=== PATIENT | male | born 1975 | race Caucasian/White ===

== ENCOUNTER 2019-11-13 09:40 | Emergency (ER) | payer OTHER ==
[~2019-11-13] VITALS: Ht 190.5 cm; Wt 81.7 kg
[2019-11-13] MEDS ORDERED: PENICILLIN V P500 MG PO (10:02)
== END 2019-11-13 10:11 | disposition home or self-care (01) ==
LOC: ED 09:40
DX: K04.7 Periapical abscess without sinus (principal)
CPT/HCPCS: 99282

== ENCOUNTER → 2019-12-23 | Emergency (ER) | payer OTHER ==
[~2019-12-23] VITALS: Ht 190.5 cm; Wt 81.6 kg
[~2019-12-23] MED LIST: PENICILLIN V P500 MG PO
--- OUTSIDE RECORDS SUMMARY | ~2019-12-23 | XMS | Clinical Summary ---
Demographics + + + | Address | [address] | | | [place] [address] | + + + | Home Phone | | + + + | Preferred Language | Unknown | + + + | Marital Status | Unknown | + + + | Samaritan Affiliation | Unknown | + + + | Race | Unknown | + + + | Ethnic Group | Unknown | + + + Author + + + | Author | [facility] | | | and [place] | + + + | Organization | [facility] | | | and [place] | + + + | Address | Unknown | + + + | Phone | Unavailable | + + + Care Team Providers + +------+ + | Care Laser Cutter Name | Role | Phone | + +------+ + | Kb Acosta PCP | | + +------+ + Allergies Not on File Medications Not on file Active Problems Not on file Social History + +-------+ +--------+------+ | Tobacco Use | Types | Packs/Day | Years | Date | | | | | Used | | + +-------+ +--------+------+ | Never Assessed | | | | | + +-------+ +--------+------+ + + + | Sex Assigned at | Date Recorded | | | | + + + | Not on file | | + + + Last Filed Vital Signs Not on file Plan of Treatment +--------+---------+ + + + | Date | Type | Specialty | Care Team | Description | +--------+---------+ + + + | 02/12/ | Office | Neurology | Barrett Maryjane | | | 2019 | Visit | | MD [facility] | | | | | | [place] | | | | | | [place] [address] | | | | | | [phone] | | | | | | | | +--------+---------+ + + + + + +-------+ + | Health Maintenance | Due Date | Last | Comments | | | | Done | | + + +-------+ + | Hepatitis C | | | | | Screening | 5 | | | + + +-------+ + | Vaccine: | | | | | Dtap/Tdap/Td (1 - | 4 | | | | Tdap) | | | | + + +-------+ + | Vaccine: Influenza | | | | | (#1) | 0 | | | + + +-------+ + Results Not on filefrom Last 3 Months Insurance + +--------+ +--------+ +---------+--------+ | Payer | Benefi | Subscriber | Effect | Phone | Address | Type | | | t Plan | ID | gen | | | | | | / | | Dates | | | | | | Group | | | | | | + +--------+ +--------+ +---------+--------+ | [employer] | [employer] | [id number] | 12/10/19 | [phone] | | Medica | | MEDICAID HMO | HEALTH | | 20-Pre | 1 | | id | | | MDCD | | sent | | | | | | [place] | | | | | | + +--------+ +--------+ +---------+--------+ + +--------+ +--------+ + + | Guarantor Name | Accoun | Relation to | Date | Phone | Billing Address | | | t Type | Patient | of | | | | | | | | | | + +--------+ +--------+ + + | Erwin Francis | Person | Self [birth year] | [address] | | | al/Fam | | 1976 | [phone] | [place] [address] | | | marino | | | 4 (Home) | | + +--------+ +--------+ + + Advance Directives + + + + + | Type | Date Recorded | Patient | Explanation | | | | Pockets And Pieces Necktie Operator | | + + + + + | Power of | | | | | Tripper | | | | + + + + + | Advance | | | | | Directive | | | | + + + + +"
== END ==
LOC: ED 09:12
DX: M25.561 Pain in right knee (principal); M25.562 Pain in left knee; G35 Multiple sclerosis; Z87.891 Personal history of nicotine dependence
CPT/HCPCS: 99283

== ENCOUNTER 2022-12-07 15:44 | Emergency (ER) | payer OTHER ==
[~2022-12-07] VITALS: Ht 190.5 cm; Wt 83.9 kg
--- OUTSIDE RECORDS SUMMARY | ~2022-12-07 | XMS | Continuity of Care Document ---
Demographics + + + | Address | [address] | | | [place] [address] | + + + | Preferred Language | Unknown | + + + | Marital Status | Never | + + + | Roman Catholic Affiliation | Unknown | + + + | Race | White | + + + | Ethnic Group | Not or | + + + Author + + + | Author | [place] | + + + | Organization | [place] | + + + | Address | [address] [facility] | | | [place] [address] | + + + | Phone | | + + + Care Team Providers + + + + | Care Plater Supervisor Name | Role | Phone | + [...] + | 2022-10-03 00:00 | NAPROXEN | [facility] | + + + + | 2022-10-03 00:00 | NAPROXEN | [facility] | + + + + | 2022-10-03 00:00 | METHYLPREDNISOLONE | [facility] | + + + + | 2022-10-03 00:00 | LEVOTHYROXINE SODIUM | [facility] | + + + + Problems + + + + | date | description | facility | + + + + | 2019-12-23 00:00 | Multiple sclerosis | [facility] | + + + + | 2019-12-23 00:00 | Pain in both knees | [facility] | + + + + | 2022-06-16 [...] 2022-10-03 00:00 | Inguinal strain | [facility] | + + + + | 2022-10-03 [...] | [facility] | + + + + Procedures No information. Results/Labs No information. Social History No information. Vital Signs + [...]
[~2022-12-07 15:44] MED LIST changes: +LEVOTHYROXINE75 MCG PO; +MEDROL4 MG PO; +NAPROSYN500 MG PO; +NAPROXEN500 MG PO
[2022-12-07 15:52] LABS: BASOPHILS 0.7 % (0-2); EOSINOPHILS 1.8 % (0-6); HEMATOCRIT 43.5 % (35.0-50.0); HEMOGLOBIN 14.8 g/dL (12.0-18.0); MCH 32.4 (27-36); MCV 95.3 fl (81-99); MONOCYTES 8.1 % (0-12); NEUTROPHILS 68.4 % (39-80); PLATELET COUNT 206 K/uL (140-440); RBC 4.56 M/ul (4.3-5.7); RDW 13.6 (10.5-15.0)
[2022-12-07 16:08] LABS: ALBUMIN 4.4 g/dL (3.4-5.0); ALBUMIN/GLOBULIN RATIO 1.19 (1.1-2.4); ANION GAP 14.2 (7-21); BILIRUBIN, TOTAL 0.5 ng/dL (0.2-1.0); BUN/CREATININE RATIO 11.32 (6.0-28.6); CALCIUM 9.6 mg/dL (8.5-10.1); CREATININE, SERUM 1.06 mg/dL (0.70-1.30); POTASSIUM 4.2 mmol/L (3.5-5.1); PROTEIN, TOTAL 8.1 g/dL (6.4-8.2)
[2022-12-07] MEDS ORDERED: TRAMADOL HCL E100 MG (16:43)
[2022-12-07 18:46] VITALS: BP 133/75
== END 2022-12-07 18:46 | disposition left against medical advice (07) ==
LOC: ED 15:44
PROVIDERS: Emergency Medicine
DX: I63.9 Cerebral infarction, unspecified (principal); G35 Multiple sclerosis; Z20.822 Contact with and (suspected) exposure to COVID-19; E03.9 Hypothyroidism, unspecified; M19.90 Unspecified osteoarthritis, unspecified site; Z88.8 Allergy status to other drugs, medicaments and biological substances; Z88.6 Allergy status to analgesic agent; Z79.899 Other long term (current) drug therapy
CPT/HCPCS: 36415; 70450; 70496; 70498; 80053; 85025; 99284-25; C9803; J3101; Q9967; U0002

== ENCOUNTER 2022-12-08 09:26 | Emergency (ER) | payer OTHER ==
[~2022-12-08] VITALS: Ht 190.5 cm; Wt 80.9 kg
--- OUTSIDE RECORDS SUMMARY | ~2022-12-08 | XMS | Continuity of Care Document ---
Demographics + + + | Address | [address] | | | [place] [address] | + + + | Preferred Language | Unknown | + + + | Marital Status | Never | + + + | Adventist Affiliation | Unknown | + + + | Race | White | + + + | Ethnic Group | Not or | + + + Author + + + | Author | [facility] | + + + | Organization | [facility] | + + + | Address | [address] [facility] | | | [place] [address] | + + + | Phone | | + + + Care Team Providers + + + + | Care House Mover Name | Role | Phone | + + + + Unavailable | Unavailable | + + + + Unavailable | Unavailable | + + + + Allergies and Intolerances + + + + + + | date | description | facility | reaction | severity | + + + + + + | (no date) | Aspirin [facility] (no reaction[facility] | (no severity) [facility] | | | + + + + + + | (no date) | Acetaminophen | [facility] | (no reaction) | (no severity) | | [facility] | | | + + + + + + | (no date) | Acetaminophen | [facility] | (no reaction) | (no severity) | | [facility] | | | + + + + + + | (no date) | Ibuprofen | [facility] | (no reaction) | (no severity) | | [facility] | | | + + + + + + | (no date) | Aspirin | [facility] | (no reaction) | (no severity) | | [facility] | | | + + + + + + | (no date) | Acetaminophen | [facility] | (no reaction) | (no severity) | | [facility] | | | + + + + + + | (no date) | Vomiting | [facility] | (no reaction) | (no severity) | | [facility] | | | + + + + + + | (no date) | Ibuprofen | [facility] | (no reaction) | (no severity) | | [facility] | | | + + + + + + | (no date) | No Known Drug | [facility] | (no reaction) | (no severity) | | | Intolerances | | | | + + + + + + | (no date) | Aspirin | [facility] | (no reaction) | (no severity) | | [facility] | | | + + + + + + | (no date) | Ibuprofen | [facility] | (no reaction) | (no severity) | | [facility] | | | + + + + + + Encounters No information. Functional Status No information. Immunizations No information. Medications + + + + | date | description | facility | + + + + | 2022-10-03 00:00 | NAPROXEN | [facility] | + + + + | 2022-10-03 00:00 | NAPROXEN | [facility] | + + + + | 2022-12-07 00:00 | NAPROXEN | [facility] | + + + + | 2022-10-03 00:00 | METHYLPREDNISOLONE | [facility] | + + + + | 2022-12-07 00:00 | TRAMADOL HCL | [facility] | + + + + | 2022-10-03 00:00 | LEVOTHYROXINE SODIUM | [facility] | + + + + | 2022-12-07 00:00 | LEVOTHYROXINE SODIUM | [facility] | + + + + Problems + + + + | date | description | facility | + + + + | 2019-12-23 00:00 | Multiple sclerosis | [facility] | + + + + | 2019-12-23 00:00 | Pain in both knees | 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 | + + + + | 2022-10-03 11:51 | HYPOTHYROIDISM, | [facility] | | | UNSPECIFIED | | + + + + | 2022-10-03 11:51 | Demyelinating diseases of | [facility] | | | the central nervous system | | | | (G35-G37) | | + + + + | 2022-10-03 11:51 | PAIN IN LEFT HIP | [facility] | + + + + | 2022-10-03 11:51 | STRAIN OF MUSCLE, FASCIA | [facility] | | | AND TENDON OF ABDOMEN, IN | | + + + + | 2022-10-03 11:51 | EXPOSURE TO OTHER | [facility] | | | SPECIFIED FACTORS, INITIAL | | | | ENCOU | | + + + + | 2022-10-03 11:51 | HORMONE REPLACEMENT | [facility] | | | THERAPY | | + + + + | 2022-10-03 11:51 | PERSONAL HISTORY OF | [facility] | | | NICOTINE DEPENDENCE | | + + + + | 2022-10-30 07:43 | PAIN IN LEFT HIP | [facility] | + + + + | 2022-10-30 07:43 | OTHER SPRAIN OF LEFT HIP, | [facility] | | | INITIAL ENCOUNTER | | + + + + | 2022-10-30 08:00 | PAIN IN LEFT HIP | [facility] | + + + + | 2022-12-07 00:00 | Acute cerebrovascular | [facility] | | | accident (CVA) | | + + + + Procedures No information. Results/Labs +--------+--------+ +---------+--------+---------+ | test | date | facility | value | unit | notes | +--------+--------+ +---------+--------+---------+ + + | Result panel 1 | + + + + + +-------+ + + | | 2022-12-07 | [facility] | 6.9 | (missing) | (missing) | | (unavailable | [facility]:47:07 [facility] | | | | + + + +-------+ + + + + | Result panel 2 | + + + + + +--------+ + + | | 2022-12-07 | [facility] | 68.4 | (missing) | (missing) | | (unavailable | [facility]:47:07 [facility] | | | | + + + +--------+ + + + + | Result panel 3 | + + + + + +--------+ + + | | 2022-12-07 | [facility] | 21.0 | (missing) | (missing) | | (unavailable | [facility]:47:07 [facility] | | | | + + + +--------+ + + + + | Result panel 4 | + + + + + +-------+ + + | | 2022-12-07 | [facility] | 8.1 | (missing) | (missing) | | (unavailable | 15:47:07 [facility] | | | | + + + +-------+ + + + + | Result panel 5 | + + + + + +-------+ + + | | 2022-12-07 | [facility] | 1.8 | (missing) | (missing) | | (unavailable | [facility]:47:07 [facility] | | | | + + + +-------+ + + + + | Result panel 6 | + + + + + +-------+ + + | | 2022-12-07 | [facility] | 0.7 | (missing) | (missing) | | (unavailable | [facility]:47:07 [facility] | | | | + + + +-------+ + + + + | Result panel 7 | + + + + + +-------+---------+ + | | 2022-12-07 | [facility] | 108 | mg/dL | (missing) | | (unavailable | [facility]:47:07 [facility] | | | | + + + +-------+---------+ + + + | Result panel 8 | + + + + + +------+---------+ + | | 2022-12-07 | [facility] | 12 | mg/dL | (missing) | | (unavailable | 15:47:07 [facility] | | | | + + + +------+---------+ + + + | Result panel 9 | + + + + + +--------+---------+ + | | 2022-12-07 | [facility] | 1.06 | mg/dL | (missing) | | (unavailable | [facility]:47:07 [facility] | | | | + + + +--------+---------+ + + + | Result panel 10 | + + + + + +------+ + + | | 2022-12-07 | [facility] | 87 | (missing) | (missing) | | (unavailable | [facility]47:07 [facility] | | | | + + + +------+ + + + + | Result panel 11 | + + + + + +---------+ + + | | 2022-12-07 | [facility] | 11.32 | (missing) | (missing) | | (unavailable | [facility]:47:07 [facility] | | | | + + + +---------+ + + + + | Result panel 12 | + + + + + +--------+ + + | | 2022-12-07 | [facility] | 4.56 | (missing) | (missing) | | (unavailable | [facility]47:07 [facility] | | | | + + + +--------+ + + + + | Result panel 13 | + + + + + +-------+ + + | | 2022-12-07 | [facility] | 139 | (missing) | (missing) | | (unavailable | [facility]47:07 [facility] | | | | + + + +-------+ + + + + | Result panel 14 | + + + + + +-------+ + + | | 2022-12-07 | [facility] | 4.2 | (missing) | (missing) | | (unavailable | [facility]47:07 [facility] | | | | + + + +-------+ + + + + | Result panel 15 | + + + + + +-------+ + + | | 2022-12-07 | [facility] | 101 | (missing) | (missing) | | (unavailable | [facility]:47:07 [facility] | | | | + + + +-------+ + + + + | Result panel 16 | + + + + + +------+ + + | | 2022-12-07 | [facility] | 28 | (missing) | (missing) | | (unavailable | 15:47:07 [facility] | | | | + + + +------+ + + + + | Result panel 17 | + + + + + +--------+ + + | | 2022-12-07 | [facility] | 14.2 | (missing) | (missing) | | (unavailable | [facility]:47:07 [facility] | | | | + + + +--------+ + + + + | Result panel 18 | + + + + + +-------+---------+ + | | 2022-12-07 | [facility] | 9.6 | mg/dL | (missing) | | (unavailable | 15:47:07 [facility] | | | | + + + +-------+---------+ + + + | Result panel 19 | + + + + + +-------+ + + | | 2022-12-07 | [facility] | 8.1 | (missing) | (missing) | | (unavailable | [facility]:47:07 [facility] | | | | + + + +-------+ + + + + | Result panel 20 | + + + + + +-------+ + + | | 2022-12-07 | [facility] | 4.4 | (missing) | (missing) | | (unavailable | [facility]:47:07 [facility] | | | | + + + +-------+ + + + + | Result panel 21 | + + + + + +-------+ + + | | 2022-12-07 | [facility] | 3.7 | (missing) | (missing) | | (unavailable | [facility]:47:07 [facility] | | | | + + + +-------+ + + + + | Result panel 22 | + + + + + +--------+ + + | | 2022-12-07 | [facility] | 1.19 | (missing) | (missing) | | (unavailable | [facility]:47:07 [facility] | | | | + + + +--------+ + + + + | Result panel 23 | + + + + + +--------+ + + | | 2022-12-07 | [facility] | 14.8 | (missing) | (missing) | | (unavailable | [facility]:47:07 [facility] | | | | + + + +--------+ + + + + | Result panel 24 | + + + + + +-------+ + + | | 2022-12-07 | [facility] | 0.5 | (missing) | (missing) | | (unavailable | [facility]47:07 [facility] | | | | + + + +-------+ + + + + | Result panel 25 | + + + + + +------+ + + | | 2022-12-07 | [facility] | 25 | (missing) | (missing) | | (unavailable | [facility]47:07 [facility] | | | | + + + +------+ + + + + | Result panel 26 | + + + + + +------+ + + | | 2022-12-07 | [facility] | 17 | (missing) | (missing) | | (unavailable | [facility]:47:07 [facility] | | | | + + + +------+ + + + + | Result panel 27 | + + + + + +------+ + + | | 2022-12-07 | [facility] | 84 | (missing) | (missing) | | (unavailable | [facility]:47:07 [facility] | | | | + + + +------+ + + + + | Result panel 28 | + + + + + +--------+ + + | | 2022-12-07 | [facility] | 43.5 | (missing) | (missing) | | (unavailable | [facility]47:07 [facility] | | | | + + + +--------+ + + + + | Result panel 29 | + + + + + +--------+ + + | | 2022-12-07 | [facility] | 95.3 | (missing) | (missing) | | (unavailable | [facility]47:07 [facility] | | | | + + + +--------+ + + + + | Result panel 30 | + + + + + +--------+ + + | | 2022-12-07 | [facility] | 32.4 | (missing) | (missing) | | (unavailable | [facility]:47:07 [facility] | | | | + + + +--------+ + + + + | Result panel 31 | + + + + + +--------+ + + | | 2022-12-07 | [facility] | 34.0 | (missing) | (missing) | | (unavailable | [facility]47:07 [facility] | | | | + + + +--------+ + + + + | Result panel 32 | + + + + + +--------+ + + | | 2022-12-07 | [facility] | 13.6 | (missing) | (missing) | | (unavailable | [facility]47:07 [facility] | | | | + + + +--------+ + + + + | Result panel 33 | + + + + + +-------+ + + | | 2022-12-07 | [facility] | 206 | (missing) | (missing) | | (unavailable | [facility]47:07 [facility] | | | | + + + +-------+ + + + + | Result panel 34 | + + + + + + + + + | | 2022-12-07 | [facility] | NEGATIVE | (missing) | (missing) | | (unavailable | 16:46:07 [facility] | | | | + + + + + + + Social History No information. Vital Signs + + + +---------+ | date | measurement | value | units | + + + +---------+ | 2022-10-03 00:00 | BMI | 23.1 | kg/m2 | + + + +---------+ | 2022-10-03 00:00 | BP_diastolic | 75 | mmHg | + + + +---------+ | 2022-10-03 00:00 | BP_systolic | 98 | mmHg | + + + +---------+ | 2022-10-03 00:00 | heart_rate | 79 | /min | + + + +---------+ | 2022-10-03 00:00 | height_metric | 190.5 | cm | + + + +---------+ | 2022-10-03 00:00 | height_standard | 75 | in | + + + +---------+ | 2022-10-03 00:00 | o2_saturation | 98 | % | + + + +---------+ | 2022-10-03 00:00 | respiration_rate | 16 | /min | + + + +---------+ | 2022-10-03 00:00 | temperature_metric | 36.83 | C | | | | | | + + + +---------+ | 2022-10-03 00:00 | | 98.3 | F | | | temperature_standar | | | | | d | | | + + + +---------+ | 2022-10-03 00:00 | weight_metric | 83.91 | kg | + + + +---------+ | 2022-10-03 00:00 | weight_standard | 184.99 | lb | + + + +---------+ | 2022-10-03 00:00 | weight_standard | 185 | lb | + + + +---------+ | 2022-12-07 00:00 | BMI | 23.1 | kg/m2 | + + + +---------+ | 2022-12-07 00:00 | BP_diastolic | 75 | mmHg | + + + +---------+ | 2022-12-07 00:00 | BP_systolic | 133 | mmHg | + + + +---------+ | 2022-12-07 00:00 | heart_rate | 70 | /min | + + + +---------+ | 2022-12-07 00:00 | height_metric | 190.5 | cm | + + + +---------+ | 2022-12-07 00:00 | height_standard | 75 | in | + + + +---------+ | 2022-12-07 00:00 | o2_saturation | 100 | % | + + + +---------+ | 2022-12-07 00:00 | respiration_rate | 14 | /min | + + + +---------+ | 2022-12-07 00:00 | temperature_metric | 36.89 | C | | | | | | + + + +---------+ | 2022-12-07 00:00 | | 98.4 | F | | | temperature_standar | | | | | d | | | + + + +---------+ | 2022-12-07 00:00 | weight_metric | 83.91 | kg | + + + +---------+ | 2022-12-07 00:00 | weight_standard | 184.99 | lb | + + + +---------+ | 2022-12-07 00:00 | weight_standard | 185 | lb | + + + +---------+"
--- OUTSIDE RECORDS SUMMARY | ~2022-12-08 | XMS | Continuity of Care Document ---
Demographics + + + | Address | [address] | | | [place] [address] | + + + | Preferred Language | Unknown | + + + | Marital Status | Never | + + + | Sikhism Affiliation | Unknown | + + + | Race | White | + + + | Ethnic Group | Not or | + + + Author + + + | Author | [facility] | + + + | Organization | [facility] | + + + | Address | [address] | | | [place] [address] | + + + | Phone | | + + + Care Team Providers + + + + | Care Figure Refinisher And Repairer Name | Role | Phone | + [...] + | 2022-10-03 00:00 | NAPROXEN | [facility] | + + + + | 2022-10-03 00:00 | NAPROXEN | [facility] | + + + + | 2022-12-07 00:00 | NAPROXEN | [facility] | + + + + | 2022-10-03 00:00 | METHYLPREDNISOLONE | [facility] | + + + + | 2022-12-07 00:00 | TRAMADOL HCL | [facility] | + + + + | 2022-10-03 00:00 | LEVOTHYROXINE SODIUM | [facility] | + + + + | 2022-12-07 00:00 | LEVOTHYROXINE SODIUM | [facility] | + + + + Problems + + + + | date | description | facility | + + + + | 2019-12-23 00:00 | Multiple sclerosis | [facility] | + + + + | 2019-12-23 00:00 | Pain in both knees | [facility] | + + + + | [...] 2022-10-03 00:00 | Inguinal strain | [facility] | + + + + | [...] | 2022-12-07 00:00 | Acute cerebrovascular | [facility] | | | accident (CVA) | | [...] (missing) | | (unavailable | 15:47:07 | [facility] | | | | | ) | [...] (missing) | | (unavailable | 15:47:07 | [facility] | | | | | ) | [...]
[~2022-12-08 09:26] MED LIST changes: +TRAMADOL HCL E100 MG
--- OUTSIDE RECORDS SUMMARY | 2022-12-08 09:28 | XMS ---
PreManage Notification: LASHELL CROW [employer] Events No recent Security Events currently on file CRITERIA MET - [facility] - 2 Visits in 30 Days CARE PROVIDERS -, Lazaro- Dentist: Grocery Bagger [facility] PHONE: [phone] -, Timothy- Dentist: Grocery Bagger Current [facility] PHONE: [phone] ELDA VARGAS Emergency Medicine Current PHONE: Unknown Karoline Pelayo Nurse Practitioner: Family Current PHONE: [phone] LAUREN LYLES [facility] Current PHONE: Unknown Yash has no Care Guidelines for this patient. [place] VISIT COUNT (12 MO.) [address] [facility] TOTAL 3 NOTE: Visits indicate total known visits. ED/UCC VISIT TRACKING (12 MO.) 12/08/2022 09:27 [facility] [place] TYPE: Emergency COMPLAINT: - FOLLOW UP MRI W/DR. NEVES 12/07/2022 15:44 [facility] [place] TYPE: Emergency COMPLAINT: - POSS STROKE 10/03/2022 11:51 [facility] [place] TYPE: Emergency COMPLAINT: - L HIP PAIN DIAGNOSES: - Exposure to other specified factors, initial encounter - Hormone replacement therapy - Hypothyroidism, unspecified - Multiple sclerosis - Pain in left hip - Personal history of nicotine dependence - Strain of muscle, fascia and tendon of abdomen, initial encounter INPATIENT VISIT TRACKING (12 MO.) No inpatient visits to display in this time frame [email or web address]
[2022-12-08 12:50] VITALS: BP 127/85
== END 2022-12-08 12:45 | disposition home or self-care (01) ==
LOC: ED 09:26
DX: G35 Multiple sclerosis (principal); E03.9 Hypothyroidism, unspecified; Z88.6 Allergy status to analgesic agent; Z79.890 Hormone replacement therapy; Z79.899 Other long term (current) drug therapy; Z87.891 Personal history of nicotine dependence
CPT/HCPCS: 70553; 96374; 99285-25; A9579